=== PATIENT | male | born 1955 | race Caucasian/White ===

== ENCOUNTER → 2023-08-28 | Outpatient (CLI) | payer MEDICARE ==
--- NOTE | 2023-08-28 19:35 | PE ---
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 Images are reviewed on the computer in the coronal, a xial, and sagittal planes. Reconstructed rotating images are created on independent workstation and reviewed on the computer. A non-contrast CT is performed in conjunction with the PET scan. Glucose level 1:30 mg/dL CT DLP: 1163 mGycm, Automated exposure control for dose reduction was used. COMPARISON: CT None, PET/CT None, FINDINGS: Mediastinal SUV mean is 2.4 . Hepatic parenchyma SUV mean is 3.1. SKULL BASE AND NECK: No suspicious radiotracer activity. CHEST, MEDIASTINUM, AND HILAR REGION: No suspicious radiotracer activity. ABDOMEN AND PELVIS: No suspicious radiotracer activity. MUSCULOSKELETAL STRUCTURES: No suspicious radiotracer activity. Physiologic uptake within the right g roin musculature. Possibly within obturator externus. There are some calcifications in this region. Extremities: Misregistration artifact limits evaluation. Calcaneal plantar spurring with uptake at th e calcaneus bilaterally. Focus of uptake in the plantar surface of the left foot max SUV 2.4. OTHER CT: Surgical clips are seen throughout the retroperitoneum. Scattered colonic diverticula. Left thyroid nodule. IMPRESSION: 1. No suspicious radiotracer activity. No lymph nodes greater than 1.0 cm short axis identified. No abnormal uptake identified. 2. Small focus of uptake along the plantar surface subcutaneous tissues of the left foot correlate f or infectious/inflammatory process/versus injury.
== END | disposition home or self-care (01) ==
LOC: RADPETMAIN 08:08
PROVIDERS: ATTEND Internal Medicine Hematology & Oncology
DX: C83.33 Diffuse large B-cell lymphoma, intra-abdominal lymph nodes (principal)
CPT/HCPCS: 78816; A9552